=== PATIENT | female | born 2000 | race African-American/Black ===

== ENCOUNTER 2019-02-26 15:20 | Emergency (ER) | payer MEDICAID, OTHER ==
[~2019-02-26] VITALS: Ht 177.8 cm; Wt 59.0 kg
--- NOTE | 2019-02-26 15:40 | NUR ---
patient came to the ER c/o abd pain and +n/v, on room air, breathing evenly and unlabored. Connected to the monitor and pulse ox. kept comfortable, will continue to monitor accordingly.
--- NOTE | 2019-02-26 16:28 | NUR ---
urine collected and sent to lab.
[2019-02-26] MEDS ORDERED: MAG HYDROX/AL HYDROX/SIMETH 30 ML UDC PO ONE (16:30)
[2019-02-26] MEDS ORDERED: ONDANSETRON HCL/PF 4 MG/2 ML VIAL IVP ONE (16:30)
[2019-02-26] MEDS ORDERED: FAMOTIDINE/PF INJ 20 MG/2 ML VIAL IV ONE ×2 (16:30→16:36)
[2019-02-26] MEDS ORDERED: IV NS 0.9% 1,000 ML BAG IV ONE (16:30)
[2019-02-26] MEDS ORDERED: ONDANSETRON HCL/PF 4 MG/2 ML VIAL ONE (16:36)
[2019-02-26] MEDS ORDERED: MAG HYDROX/AL HYDROX/SIMETH 30 ML UDC ONE (16:36)
[2019-02-26 16:39] LABS: APPEARANCE,URINE Clear (CLEAR); BASOPHILS % (AUTO) 0.2 % (0.0-2.0); BILIRUBIN,URINE Negative (NEGATIVE); BLOOD, URINE Trace-intact Ery/uL (NEGATIVE); COLOR,URINE Dark (YELLOW); EOSINOPHILS % (AUTO) 2.1 % (0.0-6.0); HEMATOCRIT 41 % (33-45); HEMOGLOBIN 13.5 g/dL (11.5-14.8); KETONES,URINE Trace (NEGATIVE); LEUKOCYTE ESTERASE ,URINE Negative (NEGATIVE); LYMPHOCYTES # (AUTO) 1.5 /CMM (0.8-4.8); LYMPHOCYTES % (AUTO) 27.3 % (20.0-44.0); MEAN CORPUSCULAR HGB CONC 33 g/dl (31.0-36.0); MEAN CORPUSCULAR VOLUME 83 fL (82-100); MONOCYTES # (AUTO) 0.4 /CMM (0.1-1.30); MONOCYTES % (AUTO) 8.2 % (2.0-12.0); NEUTROPHILS # (AUTO) 3.4 /CMM (1.8-8.9); NEUTROPHILS % (AUTO) 62.2 % (43.0-81.0); NITRITE, URINE Negative (NEGATIVE); PLATELET COUNT (AUTO) 203 /CMM (150-450); PROTEIN,URINE 30 mg/dl (NEGATIVE); RED BLOOD CELL COUNT(AUTO) 4.94 MIL/uL (4.0-5.2); UGLUCOSE Negative (NEGATIVE); UROBILINOGEN,URINE 0.2 EU/dL (0.2); WHITE BLOOD COUNT (AUTO) 5.4 K/uL (4.3-11.0)
[2019-02-26 16:45] LABS: CALCIUM, SERUM 9.7 mg/dL (8.5-10.1); CREATININE 0.6 mg/dL (0.6-1.3); POTASSIUM 3.7 mmol/L (3.5-5.1)
[2019-02-26 16:50] LABS: ALBUMIN 4.3 g/dL (3.4-5.0); BILIRUBIN,DIRECT 0.1 mg/dL (0.0-0.2); BILIRUBIN,TOTAL 0.4 mg/dL (0.2-1.0); TOTAL PROTEIN, SERUM 7.6 g/dL (6.4-8.2)
[2019-02-26 16:57] LABS: BACTERIA,URINE Rare /HPF (None Seen); SQUAMOUS EPITHELIAL CELL,UR Few /HPF (None Seen); WBC,URINE NONE SEEN /HPF (0-3)
--- NOTE | 2019-02-26 18:24 | NUR ---
IV removed. Catheter intact and site benign. Pressure and 4x4 applied to site. No bleeding noted.
--- NOTE | 2019-02-26 18:24 | NUR ---
DCPatient discharged to home in stable condition. Written and verbal after care instructions given. Patient verbalizes understanding of instruction.
[2019-02-26 18:27] VITALS: BP 122/78
== END 2019-02-26 18:28 | disposition home or self-care (01) ==
LOC: ER 15:24
DX: R11.2 Nausea with vomiting, unspecified (principal); R19.7 Diarrhea, unspecified; R00.0 Tachycardia, unspecified
CPT/HCPCS: 36415; 80048; 80076; 81001; 83690; 84703; 85025; 87210; 96361; 96374; 96375; 99283; A6402; J2405; J3490; J7030; 81000-TC

== ENCOUNTER 2021-03-01 20:23 | Emergency (ER) | payer MEDICAID ==
[~2021-03-01] VITALS: Ht 177.8 cm; Wt 59.0 kg
[2021-03-01 20:29] VITALS: BP 136/76
[2021-03-01] MEDS ORDERED: CEPH500C2 PO (20:46)
[2021-03-01] MEDS ORDERED: MUPI22OI2 TP (20:46)
[2021-03-01] MEDS ORDERED: SULF1TAB48 PO (20:46)
[2021-03-01] MEDS ORDERED: CEPHALEXIN MONOHYDRATE 500 MG CAPSULE PO ONE ×2 (21:00→21:40)
[2021-03-01] MEDS ORDERED: SULFAMETH/TRIMETH 800/160 MG 1 UDTAB TABLET PO ONE (21:00)
[2021-03-01] MEDS ORDERED: SULFAMETH/TRIMETH 800/160 MG 1 UDTAB TABLET ONE (21:40)
--- NOTE | 2021-03-01 21:46 | NUR ---
Patient discharged to home in stable condition. Written and verbal after care instructions given. Patient verbalizes understanding of instruction. Pt ambulatory with a steady gait
== END 2021-03-01 22:04 | disposition home or self-care (01) ==
LOC: ER 20:27
DX: S90.821A Blister (nonthermal), right foot, initial encounter (principal); Z59.0 Homelessness; W57.XXXA Bitten or stung by nonvenomous insect and other nonvenomous arthropods, initial encounter; Y93.89 Activity, other specified; Y92.89 Other specified places as the place of occurrence of the external cause; Y99.8 Other external cause status

== ENCOUNTER 2021-03-07 23:38 | Emergency (ER) | payer MEDICAID ==
[~2021-03-07] VITALS: Ht 167.6 cm; Wt 65.8 kg
[2021-03-07 23:38] VITALS: BP 126/94
[~2021-03-07 23:38] MED LIST: CEPH500C2 PO; MUPI22OI2 TP; SULF1TAB48 PO
[2021-03-08] MEDS ORDERED: CEPH500C2 PO (00:47)
[2021-03-08] MEDS ORDERED: MUPI22OI2 TP (00:47)
== END 2021-03-08 00:50 | disposition home or self-care (01) ==
LOC: ER 23:38
DX: S90.821A Blister (nonthermal), right foot, initial encounter (principal); W57.XXXA Bitten or stung by nonvenomous insect and other nonvenomous arthropods, initial encounter; Y93.89 Activity, other specified; Y92.89 Other specified places as the place of occurrence of the external cause; Y99.8 Other external cause status

== ENCOUNTER 2021-03-10 00:08 | Emergency (ER) | payer MEDICAID ==
[~2021-03-10] VITALS: Ht 177.8 cm; Wt 63.5 kg
[2021-03-10 00:38] VITALS: BP 116/77
[2021-03-10] MEDS ORDERED: MUPI22OI2 TP (01:04)
== END 2021-03-10 02:41 | disposition home or self-care (01) ==
LOC: ER 00:10
DX: T63.391A Toxic effect of venom of other spider, accidental (unintentional), initial encounter (principal); Z79.899 Other long term (current) drug therapy; Y92.89 Other specified places as the place of occurrence of the external cause

== ENCOUNTER 2021-07-30 13:21 | Emergency (ER) | payer MEDICAID ==
[~2021-07-30] VITALS: Ht 177.8 cm; Wt 63.5 kg
--- NOTE | 2021-07-30 13:40 | NUR ---
[employer] BY PT'S BEDSIDE
--- NOTE | 2021-07-30 14:04 | NUR ---
5 BAGS AND 1 LUGGAGED LABELED AND BROUGHT TO STORAGE PT BELONGINGS ROOM. PURSE BY PT'S BEDSIDE.
--- NOTE | 2021-07-30 15:32 | NUR ---
MELY called [facility] [[address] [place] [address]; Unit TEL: [phone] (1054 intake) ] for Psych placement as this pt. is on a 5150 hold for DTS/GD. Per Lester from Intake, they have a bed available. They need a negative PCR test. However, they will accept pt. with negative rapid test and pending PCR. MELY notified Tech. Salgado for PCR. Clinicals to be faxed to [place] ATTN: Intake fax:[phone] when labs and MD note are completed.
[2021-07-30 16:04] LABS: BASOPHILS % (AUTO) 0.5 % (0.0-2.0); EOSINOPHILS % (AUTO) 1.6 % (0.0-6.0); HEMATOCRIT 31 % (33-45); LYMPHOCYTES # (AUTO) 1.5 K/uL (0.8-4.8); LYMPHOCYTES % (AUTO) 25.5 % (20.0-44.0); MEAN CORPUSCULAR HGB CONC 32 g/dl (31.0-36.0); MEAN CORPUSCULAR VOLUME 81 fL (82-100); MONOCYTES # (AUTO) 0.6 K/uL (0.1-1.30); MONOCYTES % (AUTO) 9.7 % (2.0-12.0); NEUTROPHILS # (AUTO) 3.6 K/uL (1.8-8.9); NEUTROPHILS % (AUTO) 62.7 % (43.0-81.0); PLATELET COUNT (AUTO) 282 K/uL (150-450); RED BLOOD CELL COUNT(AUTO) 3.81 MIL/uL (4.0-5.2); WHITE BLOOD COUNT (AUTO) 5.7 K/uL (4.3-11.0)
[2021-07-30 16:15] LABS: CALCIUM, SERUM 8.4 mg/dL (8.5-10.1); CARBON DIOXIDE 25 mmol/L (21-32); CHLORIDE 104 mmol/L (98-107); CREATININE 0.6 mg/dL (0.6-1.3); GLUCOSE 72 mg/dL (74-106); POTASSIUM 3.2 mmol/L (3.5-5.1); SODIUM SERUM 139 mmol/L (136-145); UREA NITROGEN, BLOOD 10 mg/dL (7-18)
[2021-07-30 16:20] LABS: ACETAMINOPHEN 2 ug/ml (10-30); ALANINE AMINOTRANSFERASE 21 U/L (12-78); ALBUMIN 2.8 g/dL (3.4-5.0); ALCOHOL, BLOOD < 3 mg/dL (0-0); ALKALINE PHOSPHATASE 56 U/L (46-116); ASPARTATE AMINOTRANSFERASE 14 U/L (15-37); BILIRUBIN,DIRECT 0.1 mg/dL (0.0-0.2); BILIRUBIN,TOTAL 0.2 mg/dL (0.2-1.0); TOTAL PROTEIN, SERUM 5.6 g/dL (6.4-8.2)
--- NOTE | 2021-07-30 16:29 | NUR ---
urine collected and sent to the lab
[2021-07-30 16:48] LABS: BILIRUBIN,URINE NEGATIVE (NEGATIVE); COLOR,URINE YELLOW (YELLOW); LEUKOCYTE ESTERASE ,URINE NEGATIVE (NEGATIVE); NITRITE, URINE NEGATIVE (NEGATIVE); PROTEIN,URINE TRACE mg/dl (NEGATIVE); UGLUCOSE NEGATIVE (NEGATIVE); UROBILINOGEN,URINE 0.2 EU/dL (0.2)
[2021-07-30 16:59] LABS: BACTERIA,URINE 1+ /HPF (None Seen)
--- NOTE | 2021-07-30 17:56 | NUR ---
covid swab done and sent to lab
--- NOTE | 2021-07-30 18:20 | NUR ---
FAXED CLINICALS TO [facility] [phone] TEL [phone] COVID STATUS NEG.
--- NOTE | 2021-07-30 19:58 | NUR ---
CALLED [facility] AND SPOKE TO ANSLEY, THEY'RE REVIWING THE CASE. WILL GIVE US A CALL BACK W/ UPDATE
--- NOTE | 2021-07-30 20:21 | NUR ---
PATIENT ALERT AND ON A TELE MONITOR AND POX.
--- NOTE | 2021-07-30 20:26 | NUR ---
GAVE REPORT TO UTE FROM [facility] FOR PT EMIR. K 3.2 WITH NO ORDERS FOR MEDS FROM DR CHAVEZ.
[2021-07-30] MEDS ORDERED: SULF1TAB48 PO (21:26)
[2021-07-30] MEDS ORDERED: IBUPROFEN 400 MG TABLET ONE (21:26)
[2021-07-30] MEDS ORDERED: IBUPROFEN 400 MG TABLET PO ONE (21:30)
[2021-07-30] MEDS ORDERED: POTASSIUM CHLORIDE 20 MEQ TAB.PRT.SR PO ONE ×2 (21:59→22:00)
[2021-07-30] MEDS ORDERED: SULFAMETH/TRIMETH 800/160 MG 1 UDTAB TABLET ONE (22:22)
[2021-07-30] MEDS ORDERED: SULFAMETH/TRIMETH 800/160 MG 1 UDTAB TABLET PO ONE (22:30)
--- NOTE | 2021-07-30 22:56 | NUR ---
multiple phone calls to monserrat yancey @ [phone] w/ no answer
--- NOTE | 2021-07-30 23:08 | NUR ---
spoke to sandra at [facility] and updatd her re medications given . will fax the records
--- NOTE | 2021-07-30 23:19 | NUR ---
FAXED FACE SHEET, CLINICALS, AND HOLD TO DAR HARDY AT [phone]
--- NOTE | 2021-07-30 23:50 | NUR ---
PATIENT ALERT AND ORIENTED, RESTING COMFORTABLY NO COMPLAINTS
--- NOTE | 2021-07-31 00:52 | NUR ---
PT GOT ACCEPTED AT [facility] BY DR JACKSON 144A # FOR REPORT: [phone]
--- NOTE | 2021-07-31 00:56 | NUR ---
[facility] ETA : 30-45 MIN
--- NOTE | 2021-07-31 01:22 | NUR ---
CALLED TO GIVE REPORT. WILL CALL BACK AGAIN TO GIVE REPORT.
[2021-07-31] MEDS ORDERED: IBUPROFEN 400 MG TABLET PO ONE (02:00)
[2021-07-31] MEDS ORDERED: IBUPROFEN 400 MG TABLET ONE (02:03)
--- NOTE | 2021-07-31 02:06 | NUR ---
ALL OF PT'S BELONGINGS LOADED INTO AMBULANCE
--- NOTE | 2021-07-31 02:06 | NUR ---
[facility] AT BED SIDE TO ORCHID HAND THE PT, REPORT GIVEN
--- NOTE | 2021-07-31 03:04 | NUR ---
REC'D A CALL FROM UTE AT [facility] STATED HE'S UNABLE TO ACCEPT THE PT DUE TO HER HANDS CONDITION. INFORMED UTE HE CAN GO AHEAD AND SENT THE PT BACK TO THE ER, HOWEVER DR'S NOTE EXPLAINS THE PT'S CONDITION W/ STUCK RINGS ON THE FINGERS. DR BOSWELL MADE AWARE.
--- NOTE | 2021-07-31 03:49 | NUR ---
[facility] UNIT 285 CAME BACK AND RETURNED PT.
--- NOTE | 2021-07-31 05:47 | NUR ---
patient resting comfortably no complaints at this time
--- NOTE | 2021-07-31 08:49 | NUR ---
MELY faxed clinicals to: [facility] FAX: [phone] TEL: [phone] Hussain Nguyen ATTN:Monty tel:[phone] Mady Sethi fax:[phone] tel:[phone] ATTN: Ralf
--- NOTE | 2021-07-31 08:56 | NUR ---
[facility] denied pt. no beds.
[2021-07-31] MEDS ORDERED: OLANZAPINE 5 MG TABLET PO ONE (09:30)
[2021-07-31] MEDS ORDERED: IBUPROFEN 600 MG TABLET PO ONE (09:30)
[2021-07-31] MEDS ORDERED: OLANZAPINE 5 MG TABLET ONE (10:14)
[2021-07-31] MEDS ORDERED: IBUPROFEN 600 MG TABLET ONE (10:14)
--- NOTE | 2021-07-31 10:19 | NUR ---
C/O BOTH HAND PAIN 10.
[2021-07-31] MEDS ORDERED: LORAZEPAM INJ 2 MG/ML VIAL IM/IV ONE (10:30)
[2021-07-31] MEDS ORDERED: LORAZEPAM INJ 2 MG/ML VIAL ONE (10:43)
[2021-07-31] MEDS ORDERED: LIDOCAINE /MPF 1% VIAL 5 ML VIAL ONE (11:03)
[2021-07-31] MEDS ORDERED: VANCOMYCIN 1 GM in IV D5W 250 ML IV ONE (11:30)
[2021-07-31] MEDS ORDERED: PIPERACILLIN /TAZOBACTAM 3.375 G in IV D5W 50 ML IV ONE (11:30)
--- NOTE | 2021-07-31 11:37 | NUR ---
CALLED [facility] AND WAS NOTIFIED OF PT STATUS. ALSO, FAXED OVER FACE SHEET OF PT TO [phone]
--- NOTE | 2021-07-31 11:53 | NUR ---
CALL FROM [facility], UNABLE TO TAKE PATIENT, NO STAFF TO ACCEPT THE PATIENT
--- NOTE | 2021-07-31 12:53 | NUR ---
CALLED [facility] FOR POSSIBLE ADMISSION OF PT BUT WAS NOTIFIED THAT THEY ARE AT MAX CAPACITY.
--- NOTE | 2021-07-31 13:23 | NUR ---
"SS Consult: SS consult for homelessness. Pt. Is a 21-year-old Black female. Pt. demonstrates adequate insight to the reason for hospitalization. Per pt., she was brought to hospital by ambulance due to swollen hands. Pt. was oriented x3, alert, and cooperative. During interview, pt. was capable of following directions, made appropriate eye-contact, but appeared tired. SW explored pt.s Hx of mental health and substance abuse. Pt. reported no Hx of mental health, SI/HI, denied AH/VH, paranoia or delusions. SW explored pt.s living situation. Per pt., she been homeless for three years. Pt. mentioned that she has been living on the streets and shelters [section 8]. Per pt., she reports having no adequate support. SW explored pt.s financial status. Per pt., she is currently unemployed and does not receive any benefits. SW provided pt. with homeless resources and pt. accepted. Pt. requested a tap card, and SW provided her with one. Plan: MELY provided available resources and pt. accepted. Once discharge, per pt., she will use the resources that are provided to explore her living options. Resources Provided: Year-round shelters: [facility] [address] [place] [address] ; [facility] [facility] [address] [place] [address]; [facility] [facility] [id number] [facility] [address] Winter Shelters: [facility] Provider: [facility] Address: [address] [facility], [address] # of Beds: 47 Population Served: [facility] 6 | [facility] Rachna Keane [place] Provider: [facility] at Last Address: [address], [address] # of Beds: 66 Population Served: [facility] [employer] [place] Provider: First to Serve Address: [address] [facility], [address] # of Beds: 56 Population Served: [facility] [place] Provider: / [facility] Address: [address] [facility], [address] # of Beds: 49 Population Served: [facility] 8 | [place] Provider: First to Serve Address: [facility]5 [facility] # of Beds: 37 Population Served: [place] Hygiene: [facility]: [address] [place] ; [facility] [address] [facility] ; [facility] [address] [facility] . Food Resources: [place] [facility] at [facility]- [address] [facility]. Boss; Meet Each Need with Dignity ([facility]) [address] [facility]; [facility] [address] [facility]; [facility] 8[address] [facility]. Mental Health resources provided: [facility] [address] [place], [place] [id number] ; [facility] Mental Health [place] [address], [place], [place] [id number] ; [facility] [address] [place], [place] [phone] ; [facility] [address] [place], [place] [id number] Healthcare Clinics: [facility] [address] [facility], [address] [place]. [place] ; [facility] [address] [facility] [address] [place] [address]; [facility] [address] [facility]. [place] [id number] [phone]"
[2021-07-31] MEDS: OLANZAPINE 5 MG TABLET PO SCH (17:00)
--- NOTE | 2021-07-31 17:29 | NUR ---
Note shahla in ED - 07/31/21 at 1731 by ANITA ZYPREXA 10 MG DUE AT 1700 HELD DUE TO PATIENT SLEEPING. RONALD HAYNES MADE AWARE.
--- NOTE | 2021-07-31 17:31 | NUR ---
ZYPREXA 10 MG DUE AT 1700 HELD DUE TO PATIENT SLEEPING. DR DIAS MADE AWARE.
--- NOTE | 2021-07-31 19:05 | NUR ---
Patient is resting comfortably in bed with eyes closed. Easily aroused. VSS
--- NOTE | 2021-07-31 21:05 | NUR ---
PT SITTING WATCHING TV, ATTACHED TO MONITOR AND POX. VSS
--- NOTE | 2021-07-31 22:22 | NUR ---
PT WALKED TO BATHROOM, NEEDS MET
--- NOTE | 2021-07-31 23:26 | NUR ---
[facility] WAS CALLED REQUESTING FOR HIGHER LEVEL OF CARE TRANSFER OF CELLULITIS OF MULTIPLE FINGERS 2ND TO IMBEDED METAL RINGS
--- NOTE | 2021-07-31 23:27 | NUR ---
CALLED [facility] SPOKE TO BONG WARE, FAXED FACESHEET AND CLINICALS TO [facility], AWAITING CALL BACK, WAS NOTIFIED OF LIMITED BED AVAILABILITY.
--- NOTE | 2021-08-01 00:44 | NUR ---
Kal gale in EDM - 08/01/21 at 0045 by WESTON EL FROM [facility] CALLED BACK TO GET FURTHER CLINICAL INFORMATION. STILL AWAITING FOR ACCEPTANCE.
--- NOTE | 2021-08-01 00:45 | NUR ---
EL FROM [facility] TRAN[facility] CLAUDE CALLED BACK TO GET FURTHER CLINICAL INFORMATION. STILL AWAITING FOR ACCEPTANCE.
--- NOTE | 2021-08-01 01:20 | NUR ---
SPOKE WITH EL FROM [facility]. CASE IS DECLINED D/T SERVICE AND HOSPITAL IS AT CAPACITY.
--- NOTE | 2021-08-01 01:31 | NUR ---
[facility]ED [facility] FOR [facility]HER [facility]EVEL OF CARE. HOSPITAL IS AT CAPACITY AND CAN BE PLCAED ON A WAITING LIST. CLINICAL TO BE FAXED TO [phone] AND IMAGES OF THE HAND TO [phone]
--- NOTE | 2021-08-01 01:53 | NUR ---
CLINICALS AND PHOTOS OF HANDS SENT TO [facility]. WILL BE PLACED ON A WAITING LIST.
[2021-08-01] MEDS: OLANZAPINE 5 MG TABLET PO SCH ×2 (09:00→17:25)
--- NOTE | 2021-08-01 13:02 | NUR ---
THE PATIENT IS HAVING LUNCH. TOLERAES PROVIDED MEAL WELL.
--- NOTE | 2021-08-01 17:06 | NUR ---
PER [facility], UNABLE TO ACCEPT PATIENT DUE TO NO HAND SURGEON AVAILABLE, AND DECLINED TO NOT MEETING REQUIREMENT FOR TRANSFER DUE TO PT 5150 STATUS, RECOMMENDS GIVE ANTIOBIOTICS AND REMOVE RINGS
[2021-08-01] MEDS ORDERED: OLANZAPINE 5 MG TABLET ONE (17:10)
[2021-08-01] MEDS ORDERED: IBUPROFEN 600 MG TABLET PO ONE (19:30)
[2021-08-01] MEDS ORDERED: IBUPROFEN 600 MG TABLET ONE ×2 (20:29→21:08)
--- NOTE | 2021-08-01 20:35 | NUR ---
PT REFUSED MOTRIN AT THIS TIME; PT SLEEPING AND WANTS TO TAKE IT LATER. C/O 3/10 PAIN AT THIS TIME. ALL NEEDS MET.
--- NOTE | 2021-08-02 01:51 | NUR ---
CALLED [facility], SPOKE WITH ROSALIE FROM [facility], HOSPITAL IS AT CAPACITY.
[2021-08-02] MEDS ORDERED: PIPERACILLIN /TAZOBACTAM 3.375 G in IV D5W 50 ML IV ONE (02:00)
[2021-08-02] MEDS ORDERED: VANCOMYCIN 1 GM in IV D5W 250 ML IV ONE (02:00)
--- NOTE | 2021-08-02 02:09 | NUR ---
CALLED [facility] TO FOR [facility] LEVEL OF CARE. SPOKE WITH IVAN, SHE WILL CALL BE TO HAVE CASE RE-REVIEWED.
[2021-08-02] MEDS ORDERED: VANCOMYCIN 1 GM VIAL ONE (02:12)
[2021-08-02] MEDS ORDERED: PIPERACILLIN /TAZOBACTAM 3.375 G VIAL IV ONE (02:12)
--- NOTE | 2021-08-02 03:47 | NUR ---
CALLED BACK [facility] TO FOLLOW UP ON TRANSFER REQUEST. STILL UNABLE TO TAKE D/T SERVICES AND HOSPITAL AT CAPACITY
--- NOTE | 2021-08-02 03:50 | NUR ---
CALLED [facility] TRANSFER TO REQUEST HIGHER LEVEL OF CARE. HOSPITAL CAN NOT ACCOMODATE CASE D/T HOSPITAL IS AT CAPACITY
--- NOTE | 2021-08-02 08:30 | NUR ---
THE PATIENT IS HAVING BREAKFAST. TOLERATES PROVIDED FOOD WELL.
[2021-08-02] MEDS ORDERED: OLANZAPINE 5 MG TABLET ONE (09:31)
[2021-08-02] MEDS: OLANZAPINE 5 MG TABLET PO SCH (09:36)
[2021-08-02] MEDS ORDERED: IBUPROFEN 600 MG TABLET ONE (12:14)
--- NOTE | 2021-08-02 12:18 | NUR ---
SPOKED TO THE PATIENT REGARDING HER SITUATION THAT THE RING SHOULD BE REMOVE. PT REFUSED AND WANTS TO SIGN AMA. AWARE.
--- NOTE | 2021-08-02 12:21 | NUR ---
KERI WOODY ETA 1HR.
[2021-08-02] MEDS ORDERED: IBUPROFEN 600 MG TABLET PO ONE (12:30)
--- NOTE | 2021-08-02 14:06 | NUR ---
KERI (PSYCH CLINICIAN) AT THE BEDSIDE
--- NOTE | 2021-08-02 14:23 | NUR ---
IV removed. Catheter intact and site benign. Pressure and 4x4 applied to site. No bleeding noted.
--- NOTE | 2021-08-02 14:24 | NUR ---
Patient does not wish to proceed with medical care recommended by Dr. Ferraro. Patient given information related to possible complications, up to and including , which could occur as a result of leaving the hospital at this time. Patient verbalizes understanding of risks involved due to leaving against medical advice. Patient has signed AMA form.
[2021-08-02 14:28] VITALS: BP 125/68
== END 2021-08-02 14:28 | disposition left against medical advice (07) ==
LOC: ER 13:24
DX: F29 Unspecified psychosis not due to a substance or known physiological condition (principal); L03.114 Cellulitis of left upper limb; L03.113 Cellulitis of right upper limb; Z59.02 Unsheltered homelessness; Z82.49 Family history of ischemic heart disease and other diseases of the circulatory system; W49.04XA Ring or other jewelry causing external constriction, initial encounter; Y92.410 Unspecified street and highway as the place of occurrence of the external cause; F31.9 Bipolar disorder, unspecified; R45.851 Suicidal ideations; M79.646 Pain in unspecified finger(s); M79.2 Neuralgia and neuritis, unspecified; Z20.822 Contact with and (suspected) exposure to COVID-19
CPT/HCPCS: 36415 ×2; 64450; 73130 ×2; 80048; 80076; 80143; 80307; 80320; 81001; 83605; 84145; 84702; 84703; 85025; 87040 ×2; 87426; 96365; 96366; 96367; 96372; 96376; 99285; C9803 ×2; J2060; J2543; J3370; J3490; J7060; U0003; G0480

== ENCOUNTER 2022-07-14 21:18 | Inpatient (IN) | payer MEDICAID ==
[~2022-07-14] VITALS: Ht 180.3 cm; Wt 69.9 kg
--- NOTE | 2022-07-14 21:52 | NUR ---
BIBR 860 FOR SI, PLANNING TO RUN IN TO TRAFFIC. PT A/OX4. TOLERATING R/A WELL; RESP EVEN AND NONLABORED. CHANGED IN GOWN, BELONGINGS PLACED IN LOCKER, WANDED BY SECURITY. SITTER AT PT'S BEDSIDE. SAFETY MEASURES IN PLACE.
--- NOTE | 2022-07-14 21:54 | NUR ---
[employer] AT BED SIDE
[2022-07-14 22:06] LABS: BASOPHILS % (AUTO) 0.2 % (0.0-2.0); EOSINOPHILS % (AUTO) 1.7 % (0.0-6.0); HEMATOCRIT 40 % (33-45); HEMOGLOBIN 12.7 g/dL (11.5-14.8); LYMPHOCYTES # (AUTO) 0.9 K/uL (0.8-4.8); LYMPHOCYTES % (AUTO) 12.5 % (20.0-44.0); MEAN CORPUSCULAR HGB CONC 32 g/dl (31.0-36.0); MEAN CORPUSCULAR VOLUME 81 fL (82-100); MONOCYTES # (AUTO) 0.3 K/uL (0.1-1.30); MONOCYTES % (AUTO) 4.8 % (2.0-12.0); NEUTROPHILS # (AUTO) 5.8 K/uL (1.8-8.9); NEUTROPHILS % (AUTO) 80.8 % (43.0-81.0); PLATELET COUNT (AUTO) 178 K/uL (150-450); RED BLOOD CELL COUNT(AUTO) 4.96 MIL/uL (4.0-5.2); WHITE BLOOD COUNT (AUTO) 7.2 K/uL (4.3-11.0)
[2022-07-14 22:37] LABS: CARBON DIOXIDE 28 mmol/L (21-32); CHLORIDE 103 mmol/L (98-107); CREATININE 0.8 mg/dL (0.6-1.3); GLUCOSE 142 mg/dL (74-106); SODIUM SERUM 139 mmol/L (136-145); UREA NITROGEN, BLOOD 5 mg/dL (7-18)
[2022-07-14 22:56] LABS: ALBUMIN 3.8 g/dL (3.4-5.0); ALCOHOL, BLOOD < 3 mg/dL (0-0); ALKALINE PHOSPHATASE 102 U/L (46-116); BILIRUBIN,DIRECT 0.5 mg/dL (0.0-0.2); TOTAL PROTEIN, SERUM 6.8 g/dL (6.4-8.2)
--- NOTE | 2022-07-14 22:59 | NUR ---
COVID ANTIGEN SWAB COLLECTED AND SENT TO LAB
[2022-07-14 23:01] LABS: ACETAMINOPHEN 0 ug/ml (10-30); ALANINE AMINOTRANSFERASE > 1000 U/L (12-78); ASPARTATE AMINOTRANSFERASE > 1000 U/L (15-37)
--- NOTE | 2022-07-14 23:29 | NUR ---
URINE COLLECTED AND SENT TO LAB
[2022-07-14] MEDS ORDERED: ACETYLCYSTEINE IV 6,000 MG/30 ML VIAL IV ONE (23:57)
[2022-07-14 23:58] LABS: BILIRUBIN,URINE SMALL (NEGATIVE); COLOR,URINE YELLOW (YELLOW); LEUKOCYTE ESTERASE ,URINE NEGATIVE (NEGATIVE); NITRITE, URINE NEGATIVE (NEGATIVE); PH,URINE 6.5 (5.0-8.0); PROTEIN,URINE 30 mg/dl (NEGATIVE); UGLUCOSE 100 MG/DL mg/dL (NEGATIVE); UROBILINOGEN,URINE >=8.0 EU/dL (0.2)
[2022-07-14] MEDS ORDERED: POTASSIUM CHLORIDE 20 MEQ TAB.PRT.SR PO ONE (23:58)
[2022-07-15] VITALS (11 sets, daily range): BP systolic 98–121; BP diastolic 51–76
[2022-07-15] MEDS ORDERED: IV NS 0.9% 1,000 ML BAG IV ONE
[2022-07-15] MEDS ORDERED: ACETYLCYSTEINE IV ONE ×6
[2022-07-15] MEDS ORDERED: D5W IV ONE ×6
--- NOTE | 2022-07-15 00:30 | NUR ---
PROVIDED PT WITH FOOD AND DRINKS; TOLERATING WELL.
--- NOTE | 2022-07-15 01:06 | NUR ---
US TECH AT PT'S BEDSIDE; ONLY PORTION OF US COMPLETED. PT REFUSED TO TURN TO THE SIDE
--- NOTE | 2022-07-15 01:10 | NUR ---
[facility] C/O SUSY AT [facility] [phone]
[2022-07-15] MEDS ORDERED: ACETYLCYSTEINE IV 6,000 MG/30 ML VIAL IV ONE ×2 (01:54→04:10)
--- NOTE | 2022-07-15 02:06 | NUR ---
SPOKE TO AMY AT [facility] AND FAXED FACE SHEET AND CLINICALS TO [phone] Addendum: 07/15/22 at 0359 by ARIADNA CORRECTION: SPOKE TO RENETTA
[2022-07-15] MEDS ORDERED: ONDANSETRON HCL/PF 4 MG/2 ML VIAL ONE (02:18)
--- NOTE | 2022-07-15 02:20 | NUR ---
EMESIS X1. ADMINISERED ZOFRAN 4MG IVP. WILL REASSESS FOR N/V
[2022-07-15] MEDS ORDERED: ONDANSETRON HCL/PF - ER 4 MG/2 ML VIAL IV ONE (02:30)
--- NOTE | 2022-07-15 03:59 | NUR ---
PER JORGE AT [facility], PRECIOUS [facility] HAS NO LIVER TRANSPLANT CNETER.
--- NOTE | 2022-07-15 04:17 | NUR ---
SPOKE TO DALJIT, THE LIVER TRANSPLANT NAVIGATOR AT [facility] AND FAXED THE FACESHEET AND CLINICALS TO [phone]
--- NOTE | 2022-07-15 05:18 | NUR ---
SPOKE TO CHER GARCIA , STORE CLERK CHECKER/ONCOLOGIST AT [facility] RECOMMENDING TO REPEAT THE CBC, CMP AND COAGS. WILL MAKE DR BERMEO AWARE.
--- NOTE | 2022-07-15 06:21 | NUR ---
DEPARTMENTAL BUYER AT PT'S BEDSIDE
[2022-07-15 06:23] LABS: BASOPHILS % (AUTO) 0.3 % (0.0-2.0); EOSINOPHILS % (AUTO) 2.1 % (0.0-6.0); HEMATOCRIT 34 % (33-45); HEMOGLOBIN 11.2 g/dL (11.5-14.8); LYMPHOCYTES % (AUTO) 14.9 % (20.0-44.0); MEAN CORPUSCULAR HGB CONC 33 g/dl (31.0-36.0); MEAN CORPUSCULAR VOLUME 79 fL (82-100); MONOCYTES # (AUTO) 0.5 K/uL (0.1-1.30); NEUTROPHILS # (AUTO) 4.8 K/uL (1.8-8.9); NEUTROPHILS % (AUTO) 74.7 % (43.0-81.0); PLATELET COUNT (AUTO) 170 K/uL (150-450); RED BLOOD CELL COUNT(AUTO) 4.35 MIL/uL (4.0-5.2); WHITE BLOOD COUNT (AUTO) 6.5 K/uL (4.3-11.0)
[2022-07-15 06:37] LABS: ALBUMIN 2.6 g/dL (3.4-5.0); BILIRUBIN,TOTAL 0.7 mg/dL (0.2-1.0); CREATININE 0.5 mg/dL (0.6-1.3); TOTAL PROTEIN, SERUM 5.3 g/dL (6.4-8.2)
--- NOTE | 2022-07-15 07:10 | NUR ---
RECIVED PT from Dereck rubio pt asleepy arusble when called name respiration spont and easy on distress on Mucomist drip at 62.5ml/hr infused and patent
--- NOTE | 2022-07-15 07:22 | NUR ---
FAXED RECENT LABS TO THE LIVER TRANSPLANT NAVIGATOR AT [facility] AT [phone]
[2022-07-15 07:46] LABS: RBC,URINE NONE SEEN /HPF (0-2)
[2022-07-15 07:47] LABS: BACTERIA,URINE Few /HPF (None Seen); MUCUS,URINE Moderate /LPF (None Seen); SQUAMOUS EPITHELIAL CELL,UR Moderate /HPF (None Seen)
[2022-07-15 07:48] LABS: URINE AMORPHOUS URATE Moderate /HPF (None Seen)
--- NOTE | 2022-07-15 07:59 | NUR ---
Received called from francisco burns with ( samuel Briceno
[2022-07-15] MEDS ORDERED: POTASSIUM CHLORIDE 20 MEQ TAB.PRT.SR PO ONE ×3 (08:00→08:11)
--- NOTE | 2022-07-15 08:04 | NUR ---
RECEIVE CALL FROM GIRISH JIMÉNEZ ) REQUSTED LFT AND INR EVERY 4 HR to moniter
--- NOTE | 2022-07-15 08:33 | NUR ---
RECIEVED CALL FROM [facility] DECLINING THE CASE D/T UNCONTROLLED PSYCHIATRIC DISORDER. DR KAY MADE AWARE.
--- NOTE | 2022-07-15 08:45 | NUR ---
pT pull out iv line Rinserted ango catheter g 20 on [address] hand
--- NOTE | 2022-07-15 10:00 | NUR ---
BLOOD DROW FOR 3RD LFT AND INR
[2022-07-15 10:26] LABS: ALBUMIN 2.6 g/dL (3.4-5.0); BILIRUBIN,TOTAL 0.8 mg/dL (0.2-1.0); CALCIUM, SERUM 7.9 mg/dL (8.5-10.1); CREATININE 0.6 mg/dL (0.6-1.3); TOTAL PROTEIN, SERUM 5.2 g/dL (6.4-8.2)
--- NOTE | 2022-07-15 10:30 | NUR ---
Reiceved called from ( POSING CONTROLR FALLOW UP (DON, U )
[2022-07-15 10:35] LABS: PHOSPHORUS 0.9 mg/dL (2.5-4.9); POTASSIUM 2.7 mmol/L (3.5-5.1)
[2022-07-15] MEDS ORDERED: Magnesium 1GM/D5W 100ML PREMIX 100 ML IV ONE (11:02)
[2022-07-15] MEDS: Magnesium 1GM/D5W 100ML PREMIX 100 ML IV SCH ×3 (11:04→11:40)
--- NOTE | 2022-07-15 11:15 | NUR ---
MOVE SHEET SUBMITTED
--- NOTE | 2022-07-15 11:20 | NUR ---
STRTED MUCAMEST DRIP AT 62.5ML/HR INFUSED AND PATENT ON RT HAND # 4 FLO
--- NOTE | 2022-07-15 11:21 | NUR ---
epic paged, awaiting hospitalist call back.
[2022-07-15] MEDS: POTASSIUM PHOSPHATE MM 7.5 MMOL in IV NS 0.9% 100 ML IV SCH ×2 (11:30→14:52)
--- NOTE | 2022-07-15 13:58 | NUR ---
PT ASLEEPY VS CHECKED stable
--- NOTE | 2022-07-15 14:30 | NUR ---
AMBLATE TO BR VODING no complan
--- NOTE | 2022-07-15 15:24 | NUR ---
Contenue MUCOMyst drip at 62.5ml/hr infused and patent
[2022-07-15] MEDS ORDERED: MAGNESIUM HYDROXIDE 30 ML UDC PO PRN (16:00)
[2022-07-15] MEDS ORDERED: ZOLPIDEM TARTRATE 5 MG TABLET PO PRN (16:00)
[2022-07-15] MEDS ORDERED: ACETAMINOPHEN 325 MG TABLET PO PRN (16:00)
[2022-07-15] MEDS ORDERED: ONDANSETRON HCL/PF 4 MG/2 ML VIAL IVP PRN (16:00)
[2022-07-15] MEDS ORDERED: Z GUARD REMEDY 4 OZ OINT TP PRN (16:00)
[2022-07-15] MEDS ORDERED: MAG HYDROX/AL HYDROX/SIMETH 30 ML UDC PO PRN (16:00)
--- NOTE | 2022-07-15 16:26 | NUR ---
wating for icu bed
--- NOTE | 2022-07-15 17:12 | NUR ---
HAND OFF DEQUAN RN TO ROOM 262 ICU
--- NOTE | 2022-07-15 17:25 | NUR ---
ADMITTED FROM E.R DEPT; REPORT FROM HORTENSIA; STABLE AT THIS TIME; NO ACUTE DISTRESS NOTED, DR. RIVERA AT THE UNIT AWARE OF ADMISSION; TEMP=97.9 ORAL, ROOM AIR 98%; NO BELONGINGS. CALL LIGHT IN REACH. CLOSE MONITORING STATUS.
--- NOTE | 2022-07-15 17:40 | NUR ---
DR. RIVERA AT THE UNIT AND VERIFIED WITH MD REGARDING MUCOMYST IV; PER MD "JUST FINISH THE CURRENT MUCOMYST IV BAG."
--- NOTE | 2022-07-15 18:10 | NUR ---
DR. RIVERA MADE AWARE OF PATIENT'S REFUSAL OF LAB DRAWN EVEN AFTER 3X ENCOURAGEMENT OF RN, DR. RIVERA TALKED TO PT AND PT STILL REFUSED.NOTIFIED ASSISTANT FINANCIAL ACCOUNTANT TO TRY AT 1999.
--- NOTE | 2022-07-15 19:00 | NUR ---
RN 1-1 MONITORING RENDERED FOR SAFETY; NO ACUTE DISTRESS; ENDORSED BEDSIDE REPORT TO BRUNO AND TO RETRY LAB DRAW AT 1999.
[2022-07-15 20:56] LABS: ALBUMIN 2.5 g/dL (3.4-5.0); BILIRUBIN,DIRECT 0.3 mg/dL (0.0-0.2); BILIRUBIN,TOTAL 0.8 mg/dL (0.2-1.0); TOTAL PROTEIN, SERUM 5.3 g/dL (6.4-8.2)
--- NOTE | 2022-07-15 22:20 | NUR ---
SAS DEVELOPER INITIAL ASSESSMENT. RECEIVED THE PT REST IN BED. AWAKE, ALERT, FOLLOW COMMANDS. CEO & BOARD DIRECTOR SHOWING NSR. IB RT AND LT HAND SALINE LOCK. PT IS ROOM AIR. SAT 98%, NO ACUJTE DISTRESS NOTED, PT IS ONE TO ONE. SITTER AT BED SIDE . PT HAS STILL SUCIDAL PLAN. PT STATED I WANT TO .PSYCHIATRIC EVAUATION PLACED.
--- NOTE | 2022-07-15 22:37 | NUR ---
DIRECTOR OF MATERIALS, LAB RESULT NOTIFIED POISON CONTROL. I SPOKE WITH TERRANCE. CASE SIGNED OFF
--- NOTE | 2022-07-15 22:40 | NUR ---
POISON CONTROL SAID NO NEED Q4H LFT, ONLY AM LABS.
[2022-07-16] VITALS (27 sets, daily range): BP systolic 90–126; BP diastolic 48–76
--- NOTE | 2022-07-16 03:40 | NUR ---
PRODUCT ANALYST. AM CARE GIVEN. PT STILL IN ROOM AIR. SAT 98%. NO ACUTE DISTRESS NOTED. CHILDCARE PROVIDER SHOWING NSR. VITALS STABLE. WILL CONTINUE TO MONITOR LIVER FUNCTION TEST
[2022-07-16 04:49] LABS: BASOPHILS % (AUTO) 0.3 % (0.0-2.0); EOSINOPHILS % (AUTO) 3.6 % (0.0-6.0); HEMATOCRIT 34 % (33-45); HEMOGLOBIN 10.8 g/dL (11.5-14.8); LYMPHOCYTES # (AUTO) 1.4 K/uL (0.8-4.8); LYMPHOCYTES % (AUTO) 28.8 % (20.0-44.0); MEAN CORPUSCULAR HGB CONC 32 g/dl (31.0-36.0); MEAN CORPUSCULAR VOLUME 80 fL (82-100); MONOCYTES # (AUTO) 0.6 K/uL (0.1-1.30); MONOCYTES % (AUTO) 11.4 % (2.0-12.0); NEUTROPHILS # (AUTO) 2.7 K/uL (1.8-8.9); NEUTROPHILS % (AUTO) 55.9 % (43.0-81.0); PLATELET COUNT (AUTO) 175 K/uL (150-450); RED BLOOD CELL COUNT(AUTO) 4.22 MIL/uL (4.0-5.2); WHITE BLOOD COUNT (AUTO) 4.9 K/uL (4.3-11.0)
[2022-07-16 05:00] LABS: CREATININE 0.6 mg/dL (0.6-1.3); MAGNESIUM 1.8 mg/dL (1.8-2.4); PHOSPHORUS 2.4 mg/dL (2.5-4.9)
[2022-07-16 05:50] LABS: POTASSIUM 2.7 mmol/L (3.5-5.1)
[2022-07-16] MEDS: POTASSIUM CL. PREMIX PERIPHER. 50 ML IV SCH ×3 (07:10→08:33)
--- NOTE | 2022-07-16 07:30 | NUR ---
ICU/RN PT IS RESTING.ON ROOM AIR,SAT O2-98%.V/S STABLE,AFEBRILE.NO PAIN REPORTED AT THIS TIME.PT IS AWAKE,ALERT,COOPERATIVE.SKIN INTACT.WAITING FOR PSYCHIATRIST EVALUATION.SUICIDAL IDEATION.WITH 1:1 SITTER.LABS REVIEW K-2.7. NOTIFIED.ORDERS RECEIVED .CONTINUE MONITORING.
[2022-07-16] MEDS: PANTOPRAZOLE 40 MG TABLET.DR PO SCH (07:46)
--- NOTE | 2022-07-16 08:47 | NUR ---
ICU/RN PT EATS 100%.FROM HER MEAL TRAY.2O MEQ IV KCL GIVEN ORDERED.PT FEELS PAIN ON IV LINE AND REFUSED TO TAKE MORE POTASSIUM IV. NOTIFIED.80 MEQ OF POTASSIUM ORDERED.
[2022-07-16] MEDS ORDERED: POTASSIUM CHLORIDE 20 MEQ TAB.PRT.SR PO ONE (09:00)
[2022-07-16 11:21] LABS: ALBUMIN 2.6 g/dL (3.4-5.0); BILIRUBIN,TOTAL 0.5 mg/dL (0.2-1.0); CALCIUM, SERUM 8.2 mg/dL (8.5-10.1); CREATININE 0.5 mg/dL (0.6-1.3); PHOSPHORUS 2.4 mg/dL (2.5-4.9); POTASSIUM 3.2 mmol/L (3.5-5.1); TOTAL PROTEIN, SERUM 5.4 g/dL (6.4-8.2)
[2022-07-16] MEDS: risperiDONE 1 MG TABLET PO SCH ×2 (14:33→16:12)
--- NOTE | 2022-07-16 14:35 | NUR ---
Seniour Insight Manager Consult SW received a consult request for suicidal ideation. Patient overdosed on Tylenol prior to admission to ICU. Pt. is a 19 y.o. female who was admitted for suicidal ideation and attempt. SW met with pt. at bedside. The pt. was alert and oriented x4. The pt. appeared unkempt, did not make eye contact, and was cooperative throughout the assessment. Pt. had a depressed mood and congruent affect. Pt. reported she did not have a place to stay. Pt. confirmed the contact information for her father. Pt. stated she was ambulatory. Per pt. report she has Major Depressive Disorder, and Bipolar Disorder. Pt. reported no visual or auditory hallucinations. SW assessed for suicidal and homicidal ideation in which pt. reported suicidal ideation with a plan to run into the street and or OD. Pt. did not report homicidal ideation. DC plan: When asked of pt.s plan after discharge, pt. stated she did not have a place to go. MELY offered pt. information on half-way options in which pt. was agreeable. MELY offered to refer pt. for voluntary placement at [facility] ([facility]) in which pt. was agreeable. MELY provided pt. with homelessness resources and mental health resources in which pt. accepted them. MELY provided pt. with information to [facility] ([address] [place] [address]) with a TAP card. MELY informed nurse that pt. agreed to voluntary placement. SW will refer pt. to voluntary once pt. is medically clear. SW will await outcome of psychiatry consult. Patient was seen by Dr Chen earlier. Counseling--Outpatient [facility] [address] [place] [address] (Specializes in in-depth psychotherapy for emotional distress: anxiety, depression, interpersonal conflicts, life transitions, childhood abuse) [facility] [address] [place] [address] (Assist with solving problem marital difficulties, separation & divorce, aging parents, & grief, chronic & terminal illness) [facility] [address] [place] [address] (Deal with loss & grief, anxiety, marital difficulties) Homebound/Mental Health Services [address] [facility], [address] [place] [address] (Provide in-home mental services to people who are incapable of leaving their homes) [facility] of the Elderly Senior [facility] [address] [facility] [place] [address] [facility] [address] [place], [place] [id number] Mental Health Services Miranda Genaro Barre [address] [place] [address] Services: Outpatient therapy for children, teens, young adults, adults, older adults, and families; Psychiatric services, medication support Psychiatric Outpatient Services [facility] Partial Hospitalization and Intensive Outpatient Program (Managed Care and [place] Only) [address] [facility] [id number] [facility] Partial Hospitalization and Outpatient Program [address] [facility] [address] [place], [place] [phone] [facility] Mental Health [employer] [address] [facility] [address] [place], [place] [address] [facility] Partial Hospitalization and Outpatient Program [address] [place], [place] [phone] Crisis and Hotline Telephone Numbers 24-Hour service unless stated [facility] Crisis Hotlines: [facility] Mental Health/Crisis Line........305.484.6237 Suicide Prevention Center (24 Hours).......636.144.2312 Suicide Prevention Crisis Center.......[phone] (24 Hours) Assaults Against Women Hotline.........833.410.3792 (24 Hours -- [facility]) Women and Children Crisis Usp...........[phone] (24 Hours) Child Abuse Hotline............547.958.9336 ([facility] Treatment [facility] (24 Hours)..........503.616.9779 Alcoholics Anonymous (24 Hours)..........784.336.7910 Cocaine Anonymous (24 Hours)............[phone] Narcotics Anonymous (24 Hours)..........[phone] Yamile Jones [facility] [address] [place] [address] Year-round shelters: [facility] [place] [address] [place], [place] [address] ; [place] [facility] [place] [address] [place] [address]; [facility] [address] [facility] [address] Hygiene: [facility]: [address] [facility] ; [facility] [address] [facility] ; [facility] [address] [facility] [place] . Food Resources: [place] [facility] at [facility]- [address] [facility]; Meet Each Need with Dignity ([facility]) [address] [facility]; [facility] [address] [facility] [facility]; [facility] 85[address] [facility]. Mental Health resources provided: [facility] [address] [place] [address] ; [facility] Mental Health [employer] [address] [facility] [address], [place] [address] ; Yamile Jones [facility] [address] [place] [address] ; [facility] [address] [place], [place] [address] Healthcare Clinics: [facility] [address] [place] [address] [place], [address] [place]. [place] ; [facility] [address] [facility] [address] [place] [address]; [facility] [address] [facility] [place] [address] [phone]
--- NOTE | 2022-07-16 16:04 | NUR ---
ICU/RN PT IS STABLE TO TRANSFER TO MED SURGE UNIT WITH SITTER.V/S STABLE AFEBRILE.DUE MEDS ARE GIVEN ORDERED NO PAIN REPORTED AT THIS TIME.WAITING FOR MCRISIS TEAM EVALUATION AND FOR THE BED.
[2022-07-16] MEDS ORDERED: NEUTRA PHOS 1 POWD.PACKET PO ONE (18:00)
--- NOTE | 2022-07-16 19:20 | NUR ---
ICU/RN PT TRANSFERRED TO [facility] UNIT .V/S STABLE,AFEBRILE.NO PAIN REPORTED AT THIS TIME.
--- NOTE | 2022-07-16 19:46 | NUR ---
ICU/RN PT TRANSFERRED TO [facility] UNIT.JAIRO Munson /SANDRITA AT BEDSIDE.PT HAS NO BELONGING AT BED SIDE IN ICU .PT STATES SHE HAD SOME CLOSE DURING ADMISSION IN ER. PRIMARY NURSE NOTIFIED.,CHARGE NURSE NOTIFIED.WILL FOLLOW UP.
--- NOTE | 2022-07-16 20:00 | NUR ---
LINK WIRE FABRIC MACHINE TENDER NOTES: RECEIVED PATIENT FROM ICU VIA WHEELCHAIR, NO COMPLAIN OF PAIN AND DISCOMFORT AT THIS TIME, ON ROOM AIR SATURATING WELL, PATIENT ON TELE [id number], NO SYMPTMS WAS OBSERVED, ORIENTED TO ROOM REMIND TO USE THE CALL LIGHTS WHEN NEEDED WITH 1:1 SITTER AT BEDSIDE, PATIENT WAS ASKING HER PERSONAL BELONGINGS WAS AWARE THAT NO BELONGINGS WAS ENDORSE FROM ICU, NO PERSONAL BELONGINGS ON PATIENT NOTES, PER PATIENT SHE HAS 4 JACKETS, 1 PAJAMA, A PAIR OF SHOES AND PINK PURSE, MADE A FOLLOW UP ON ER AND STATED THAT THEY LOOK FOR THAT, PATIENT WAS OFFERED FOOD, NO CHANGES IN BEHAVIOR WAS OBSERVED, WILL CONTINUE TO MONITOR.
[2022-07-17 00:30] VITALS: BP 123/74
[2022-07-17 04:00] VITALS: BP 123/74
--- NOTE | 2022-07-17 05:15 | NUR ---
RN NOTES: PATIENT REFUSED BLOOD PRESSURE CHECK AT 12MN AND 4AM, OFFERED SEVERAL TIMES BUT REFUSED
--- NOTE | 2022-07-17 06:38 | NUR ---
MELTER SUPERVISOR CLOSING NOTES: PATIENT SLEEP IN BED COMFORTABLY, BED IN LOW POSITION CALL LIGHTS WITHIN REACH, NO COMPLAIN OF PAIN AND DISCOMFORT AT THIS TIME, ON ROOM AIR SATURATING WELL, PATIENT ON TELE [id number], A/O X2-3 AMBULATORY , ABLE TO MAKE NEEDS KNOWN, WITH 1:1 SITTER, , NO AGGRESSIVE BEHAVIOR WAS OBSERVED, PATIENT KEPT CLEAN AND DRY ALL NEEDS MET ENDORSE TO INCOMING SHIFT.
[2022-07-17 07:25] LABS: ALBUMIN 2.6 g/dL (3.4-5.0); BILIRUBIN,TOTAL 0.2 mg/dL (0.2-1.0); CALCIUM, SERUM 8.4 mg/dL (8.5-10.1); CREATININE 0.5 mg/dL (0.6-1.3); PHOSPHORUS 4.2 mg/dL (2.5-4.9); POTASSIUM 3.8 mmol/L (3.5-5.1); TOTAL PROTEIN, SERUM 5.5 g/dL (6.4-8.2)
--- NOTE | 2022-07-17 07:30 | NUR ---
SKIVING MACHINE OPERATOR AM NOTES: PATIENT IN BED, AWAKE, ALERT, ORIENTED X 3, ON ROOM AIR, NO DISTRESS,REFUSED VITAL SIGNS IN AM, "I DONT FEEL LIKE IT", DENIES PAIN AT THIS TIME. DENIES SUICIDAL THOUGHT. SR HR 80 ON MONITOR. LEFT AC G20 AND RT HAND G20 IV ACCESS, BOTH FLUSHES WELL, BOTH SITES CLEAR. AMBULATES, ON REGULAR DIET. POC DISCUSSED, VERBALIZED UNDERSTANDING.SITTER 1:1. SAFETY MEASURES IN PLACE. CALL LIGHT WITHIN REACH WILL CONT TO MONITOR.
[2022-07-17] MEDS: PANTOPRAZOLE 40 MG TABLET.DR PO SCH (08:09)
[2022-07-17] MEDS: risperiDONE 1 MG TABLET PO SCH ×2 (08:09→16:05)
--- NOTE | 2022-07-17 09:30 | NUR ---
RN NOTES DUE MEDS GIVEN
[2022-07-17 13:00] VITALS: BP 111/54
[2022-07-17 16:00] VITALS: BP 111/54
--- NOTE | 2022-07-17 18:44 | NUR ---
FACS TEACHER CLOSING NOTES: PATIENT IN BED, AWAKE, ALERT, ORIENTED X 3, ON ROOM AIR, NO DISTRESS,DENIES PAIN AT THIS TIME. DENIES SUICIDAL THOUGHT. SR HR 80s ON MONITOR. LEFT AC G20 AND RT HAND G20 IV ACCESS, BOTH FLUSHES WELL, BOTH SITES CLEAR. AMBULATES, ON REGULAR DIET. SITTER 1:1. AT BEDSIDE. SAFETY MEASURES IN PLACE. CALL LIGHT WITHIN REACH ALL NEEDS MET. NO OTHER SIGNIFICANT CHANGE IN CONDITION. WILL ENDORSE TO NEXT SHIFT FOR EMIR.
--- NOTE | 2022-07-17 19:10 | NUR ---
RN NOTES; RECEIVED ASLEEP ON BED, WITH 1;2 SITTER AT BEDSIDE, MONITORED FOR SUICIDAL IDEATION, A/O 2-3, WITH BRP, SKIN IS INTACT LAC G#20 AND RH G#20 PATENT, FOR AM LABS, KEPT ON CLOSE WATCH.FALL AND SAFETY PRECAUTION OBSERVED.
[2022-07-17 20:00] VITALS: BP 112/71
--- NOTE | 2022-07-18 02:32 | NUR ---
RN NOTES: AWAKE, REQUEST FOR SNACKS, VERIFY DIET FIRST, SHE IS FULLY AWAKE, INSTRUCT SITTER TO KEEP ON ASPIRATION PRECAUTION WHILE SHE EAT.
--- NOTE | 2022-07-18 06:02 | NUR ---
RN NOTES: LOPEZ-MAGALY RIVERA REPORTED TO RN THAT PATIENT STRONGLY REFUSED FOR BLOOD TEST, SHE TURNED AROUND, STAFF TRIED TO EXPLAIN TO HER THE RISK AND BENIFITS BUT SHE DONT WANT TO LISTEN, MIGUEL SAID THEY WILL RETURNED BACK AGAIN AFTER AN HOUR.
--- NOTE | 2022-07-18 06:52 | NUR ---
RN NOTES: ASLEEP, NON LABORED BREATHING,NO PAIN OR DISCOMFORT, NO SUICIDAL THOUGHT, NO PHYSICAL SIGN OF HARMING HER SELF, ON CLOSE WATCH WITH 1;2 SITTER, NEEDS ATTENDED, DRINKING FLUIDS WELL,ENDORSED FOR CONTINUITY OF CARE.
--- NOTE | 2022-07-18 07:00 | NUR ---
MS RN OPENING NOTES PATIENT LAYING IN BED, A/OX 3, ABLE TO MAKE NEEDS KNOWN, TOLERATING WELL ON ROOM AIR WITH NO S/S RESPIRATORY DISTRESS. NO COMPLAINTS OF PAIN OR DISCOMFORT AT THIS TIME. L AC # 20 G AND R HAND # 20 G SL CLEAN, INTACT, AND FLUSHING WELL. 1:1 SITTER AT BEDSIDE. SAFETY MEASURES IN PLACE: BED IN LOWEST LOCKED POSITION, SIDE RAILS UP X 2, CALL LIGHT WITHIN REACH. WILL CONTINUE TO MONITOR.
[2022-07-18 08:00] VITALS: BP_SYST 112; BP_SYST 120; BP_DIAS 52; BP_DIAS 78
[2022-07-18 08:06] LABS: ALBUMIN 2.8 g/dL (3.4-5.0); BILIRUBIN,TOTAL 0.3 mg/dL (0.2-1.0); CALCIUM, SERUM 8.5 mg/dL (8.5-10.1); CREATININE 0.6 mg/dL (0.6-1.3); PHOSPHORUS 4.8 mg/dL (2.5-4.9); POTASSIUM 3.9 mmol/L (3.5-5.1); TOTAL PROTEIN, SERUM 6.2 g/dL (6.4-8.2)
[2022-07-18 08:23] LABS: BASOPHILS % (AUTO) 0.1 % (0.0-2.0); EOSINOPHILS % (AUTO) 1.6 % (0.0-6.0); HEMATOCRIT 36 % (33-45); HEMOGLOBIN 11.3 g/dL (11.5-14.8); LYMPHOCYTES # (AUTO) 2.4 K/uL (0.8-4.8); MEAN CORPUSCULAR HGB CONC 32 g/dl (31.0-36.0); MEAN CORPUSCULAR VOLUME 81 fL (82-100); MONOCYTES # (AUTO) 1.3 K/uL (0.1-1.30); MONOCYTES % (AUTO) 12.7 % (2.0-12.0); NEUTROPHILS # (AUTO) 6.1 K/uL (1.8-8.9); NEUTROPHILS % (AUTO) 61.6 % (43.0-81.0); PLATELET COUNT (AUTO) 191 K/uL (150-450); RED BLOOD CELL COUNT(AUTO) 4.39 MIL/uL (4.0-5.2); WHITE BLOOD COUNT (AUTO) 9.9 K/uL (4.3-11.0)
[2022-07-18] MEDS: PANTOPRAZOLE 40 MG TABLET.DR PO SCH (08:55)
[2022-07-18] MEDS: risperiDONE 1 MG TABLET PO SCH ×2 (08:55→16:38)
[2022-07-18] MEDS: MENTHOL/CETYLPYRD (CEPACOL) 1 LOZ LOZENGE PO PRN (15:25)
[2022-07-18 16:00] VITALS: BP 126/72
[2022-07-18 18:33] VITALS: BP 101/62
[2022-07-18 20:00] VITALS: BP 121/67
--- NOTE | 2022-07-18 20:00 | NUR ---
MS RN OPENING NOTES RECEIVED PATIENT SLEEP IN BED COMFORTABLY, AROUSABLE TO VERBAL STIMULI, BED IN LOW POSTION CALL LIGHT WITHIN REACH, NO COMPLAIN OF PAIN AND DISCOMFORT AT THIS TIME ON ROOM AIR SATURATING WEKK, PATIENT HAS 1:1 SITTER DUE TO SUICIDAL HX, NO CHANGES ON BEHAVIOR HAS BEEN OBSERVED, PATIENT KEPT CLEAN AND DRY ALL NEEDS MET WILL CONTINUE TO MONITOR.
--- NOTE | 2022-07-19 06:33 | NUR ---
MS RN CLOSING NOTES: PATIENT SLEEP IN BED COMFORTABLY, AROUSABLE TO VERBAL STIMULI, BED IN LOW POSITION, CALL LIGHTS WITHIN REACH, NO COMPLAIN OF PAIN AND DISCOMFORT AT THIS TIME, ON ROOM AIR SATURATING WELL, PATIENT IS A/OX4 ABLE TO MAKE NEEDS KNOWN, WITH 1: 1 SITTER DUE TO SUICIDAL HX, PATIENT KEPT CLEAN AND DRY ALL NEEDS MET ENDORSE TO INCOMING SHIFT,
[2022-07-19] MEDS: PANTOPRAZOLE 40 MG TABLET.DR PO SCH (07:30)
--- NOTE | 2022-07-19 07:35 | NUR ---
RN OPENING NOTE- PATIENT ASLEEP IN BED, EASILY A WAKENED, AOX4, BED IN LOW POSITION, CALL LIGHT WITHIN REACH, DENIES PAIN AND DISCOMFORT AT THIS TIME, ON ROOM AIR SATURATING WELL, PATIENT IS A/OX4 ABLE TO MAKE NEEDS KNOWN, WITH 1: 1 SITTER DUE TO SUICIDAL HX, PATIENT KEPT CLEAN AND DRY, DENIES +SI AT PRESENT, MONITOR FOR SAFETY/ ASSIST
[2022-07-19 08:00] VITALS: BP 95/42
[2022-07-19] MEDS: risperiDONE 1 MG TABLET PO SCH ×2 (09:00→16:34)
--- NOTE | 2022-07-19 09:24 | NUR ---
RN NOTE PATIENT OPPOSITIONAL TO CARE. REFUSING MORNING MEDS. VITALS STABLE- BP- 95/42 HR- 86, T- 98.0, R- 20, SAT- 98% RA. EXPLAINED BENEFITS OF RX, PATIENT CONTINUES TO REFUSE.
[2022-07-19] MEDS: MENTHOL/CETYLPYRD (CEPACOL) 1 LOZ LOZENGE PO PRN ×2 (10:45→14:24)
[2022-07-19 10:54] LABS: HEMOGLOBIN 10.9 g/dL (11.5-14.8); MONOCYTES # (AUTO) 1.1 K/uL (0.1-1.30)
[2022-07-19 10:59] LABS: BASOPHILS % (AUTO) 0.3 % (0.0-2.0); EOSINOPHILS % (AUTO) 1.8 % (0.0-6.0); HEMATOCRIT 35 % (33-45); LYMPHOCYTES # (AUTO) 1.5 K/uL (0.8-4.8); LYMPHOCYTES % (AUTO) 12.9 % (20.0-44.0); MEAN CORPUSCULAR HGB CONC 32 g/dl (31.0-36.0); MEAN CORPUSCULAR VOLUME 80 fL (82-100); MONOCYTES % (AUTO) 9.6 % (2.0-12.0); NEUTROPHILS # (AUTO) 8.6 K/uL (1.8-8.9); NEUTROPHILS % (AUTO) 75.4 % (43.0-81.0); PLATELET COUNT (AUTO) 212 K/uL (150-450); RED BLOOD CELL COUNT(AUTO) 4.32 MIL/uL (4.0-5.2); WHITE BLOOD COUNT (AUTO) 11.4 K/uL (4.3-11.0)
[2022-07-19 11:12] LABS: ALBUMIN 2.9 g/dL (3.4-5.0); BILIRUBIN,TOTAL 0.2 mg/dL (0.2-1.0); CALCIUM, SERUM 8.8 mg/dL (8.5-10.1); CREATININE 0.6 mg/dL (0.6-1.3); MAGNESIUM 2.1 mg/dL (1.8-2.4); PHOSPHORUS 3.5 mg/dL (2.5-4.9); TOTAL PROTEIN, SERUM 6.5 g/dL (6.4-8.2)
[2022-07-19 11:58] LABS: LYMPHOCYTES % (MANUAL) 12 % (16-48); MONOCYTES % (MANUAL) 12 % (0-11.0); NEUTROPHILS % (MANUAL) 76 (42-76)
[2022-07-19 13:35] LABS: ALBUMIN 2.9 g/dL (3.4-5.0); BILIRUBIN,DIRECT 0.1 mg/dL (0.0-0.2); BILIRUBIN,TOTAL 0.2 mg/dL (0.2-1.0); TOTAL PROTEIN, SERUM 6.5 g/dL (6.4-8.2)
--- NOTE | 2022-07-19 14:00 | NUR ---
MELY spoke to nurse Valdes who stated that pt. was medically cleared. MELY faxed clinicals to [facility] TEL:[phone] fax:[phone] for voluntary psychiatric treatment at [facility] [[address] [place] [id number] FAX:[phone]].
[2022-07-19 16:00] VITALS: BP 110/67
--- NOTE | 2022-07-19 16:48 | NUR ---
MELY followed up with [facility] TEL:[phone] regarding possible admission. Per Rochelle, they are still waiting for feedback from nursing sup. MELY relayed this to [facility] nursing sup., Shell and Tracy CABRAL. MELY provided Rochelle from [facility] with [facility]3 number to call with acceptance info.
--- NOTE | 2022-07-19 17:00 | NUR ---
MELY faxed the medical clearance note to [facility] FAX: [phone]
--- NOTE | 2022-07-19 18:27 | NUR ---
RN CLOSING NOTE RESIDENT SITTING IN BED, ALERT AND ORIENTED X4, WITH SITTER AT BEDSIDE. ABLE TO MAKE NEEDS KNOWN. AFEBRILE AND NOT ON ANY FORM OF ACUTE DISTRESS. NO SOB/WHEEZING NOTED. PATIENT NOTED TALKING TO HERSELF AT TIMES BUT NO SUICIDAL IDEATION OBSERVED AT THIS TIME. REFUSED SOME OF HER MEDS DESPITE EXPLAINING RISK AND CONSEQUENCES OF NOT TAKING IT. REMOVED HER HEPLOCK. [facility] ACCEPTED PT FOR TOMORROW MORNING UNDER CARE OF DR BEJARANO. NUMBER FOR REPORT [phone]. OFFERED AND ENCOURAGED FLUIDS TOLERATED. SAFETY MEASURES IN PLACE. KEPT BED IN LOCKED AND IN LOW POSITION. ADVISED TO USE THE CALL LIGHT WHEN IN NEED OF ASSISTANCE. CONSTANT VISUAL CHECK DONE TO ENSURE SAFETY. ALL NURSING NEEDS ATTENDED.
--- NOTE | 2022-07-19 19:39 | NUR ---
MS RN OPENING NOTE: RECEIVED PATIENT AWAKE IN BED BED IN LOW POSITION, CALL LIGHTS WITHIN REACH, NO COMPLAIN OF PAIN AND DISCOMFORT AT THIS TIME, ON ROOM AIR SATURATING WELL, NO IV LINE UPON ENDORSEMENT PATIENT REFUSED, OFFERED TO REINSERT IV LINE BUT PATIENT STILL REFUSED, PATIENT HAS 1:1 SITTER DUE NO CHANGES IN BEHAVIOR WAS OBSERVED PATIENT KEPT CLEAN AND DRY ALL NEEDS MET WILL CONTINUE TO MONITOR.
[2022-07-19 20:00] VITALS: BP 112/60
[2022-07-19 21:00] VITALS: BP 112/60
--- NOTE | 2022-07-20 01:00 | NUR ---
PATIENT DISCHARGED IN STABLE CONDITION, A/O X4. ABLE TO MAKE NEEDS KNOWN. PATIENT ON ROOM AIR, TOLERATING WELL. NO SOB NOTED, NOT IN ANY SIGNS OF DISTRESS. VITAL SIGNS TAKEN, STABLE AND RECORDED. PATIENT HAD A LEFT LOWER LEG WOUND, DRY AND INTACT-PICTURE TAKEN. NO IV LINE AT TIME OF DISCHARGE. DENIES PAIN OR DISCOMFORT AT THIS TIME. PATIENT HAD NO BELONGINGS. PATIENT WAS GIVEN EXTRA CLOTHES TOPS AND BOTTOMS. DISCHARGED INSTRUCTIONS RELAYED TO [facility] AT 1140. PATIENT WAS PICKED UP BY 2 HAND CIGAR MAKER AND LEFT THE UNIT AT 1212. MD AND CHARGE NURSE AWARE OF DISCHARGE.
--- NOTE | 2022-07-20 06:19 | NUR ---
RN NOTES: PATIENT REFUSED BLOOD WORKS OFFERED 3X EXPLAIN THE IMPORTANCE BUT STILL REFUSED,
--- NOTE | 2022-07-20 06:20 | NUR ---
MS RN CLOSING NOTES: PATIENT SLEEP IN BED COMFORTABLY, BED IN LOW POSITION VERONA LIGHTS WITHIN REACH, NO COMPLAIN OF PAIN AND DISCOMFORT AT THIS TIME, ON ROOM AIR SATURATING WELL, PATIENT IS A/OX4 AMBULATORY ABLE TO MAKE NEEDS KNOWN, REFUSED BLOOD WORKS FOR LAB PURPOSE, WITH 1:1 SITTER NO CHANGES IN BEHAVIOR WAS OBSERVED, KEPT CLEAN AND DRY ALL NEEDS MET ENDORSE TO INCOMING SHIFT.
--- NOTE | 2022-07-20 07:10 | NUR ---
MS RN OPENING NOTES RECEIVED PATIENT SLEEP IN BED COMFORTABLY, AROUSABLE TO VERBAL STIMULI, BED IN LOW POSTION CALL LIGHT WITHIN REACH, NO COMPLAIN OF PAIN AND DISCOMFORT AT THIS TIME ON ROOM AIR SATURATING WELL, PATIENT HAS 1:1 SITTER DUE TO SUICIDAL HX, NO CHANGES ON BEHAVIOR HAS BEEN OBSERVED, KEPT COMFORTABLE. WILL MONITOR.
[2022-07-20] MEDS: PANTOPRAZOLE 40 MG TABLET.DR PO SCH (08:27)
[2022-07-20] MEDS: risperiDONE 1 MG TABLET PO SCH (08:31)
--- NOTE | 2022-07-20 08:50 | NUR ---
WOUND CARE CONSULT: PT REFUSED WOUND CONSULT. PT IS INDEPENDENT WITH BED MOBILITY AND IS NONVERBAL AT THIS TIME. WILL SEE PT PT CONDITION PERMITS.
--- NOTE | 2022-07-20 08:59 | NUR ---
MELY followed up with [facility] TEL:[phone] regarding possible psych admission. Per Rochelle, they are still waiting for bed availability. MELY will follow up later.
[2022-07-20] MEDS ORDERED: ACET325T53 PO (10:00)
[2022-07-20] MEDS ORDERED: Menthol/Cetylpyrd (Cepacol) PO (10:00)
[2022-07-20] MEDS ORDERED: PANT40TA49 PO (10:00)
[2022-07-20] MEDS ORDERED: RISP1TAB7 PO (10:00)
== END 2022-07-20 12:32 | DRG 817 ==
LOC: ER 21:19 → ICU 07-15 16:15 → TELE 07-16 19:53 → MED 07-16 19:54 → TELE 07-16 20:37
PROVIDERS: ADMIT Student in an Organized Health Care Education/Training Program; ATTEND Nurse Practitioner Acute Care
DX: T39.1X2A Poisoning by 4-Aminophenol derivatives, intentional self-harm, initial encounter (principal); K72.00 Acute and subacute hepatic failure without coma; E44.0 Moderate protein-calorie malnutrition; E83.39 Other disorders of phosphorus metabolism; D64.9 Anemia, unspecified; E87.6 Hypokalemia; Z59.00 Homelessness unspecified; Z20.822 Contact with and (suspected) exposure to COVID-19; F32.9 Major depressive disorder, single episode, unspecified; R74.01 Elevation of levels of liver transaminase levels; Z68.21 Body mass index [BMI] 21.0-21.9, adult; F25.1 Schizoaffective disorder, depressive type; R45.851 Suicidal ideations; Z91.51 Personal history of suicidal behavior; Y92.89 Other specified places as the place of occurrence of the external cause
CPT/HCPCS: 36415; 76700-TC; 80048-TC; 80053-TC; 80076-TC; 81001; 82550-TC; 83735-TC; 84100-TC; 84703-TC; 85025-TC; 85610-TC; 85730-TC; A6403; C9803; G0378; G0480; J0132; J2405; J3475; J3480; J3490; J7030; J7050; J7060; J7070

== ENCOUNTER 2022-11-06 14:25 | Emergency (ER) | payer MEDICAID, OTHER ==
[~2022-11-06] VITALS: Ht 180.3 cm; Wt 60.8 kg
[~2022-11-06 14:25] MED LIST changes: +ACET325T53 PO; -CEPH500C2 PO; -MUPI22OI2 TP; +Menthol/Cetylpyrd (Cepacol) PO; +PANT40TA49 PO; +RISP1TAB7 PO; -SULF1TAB48 PO
--- NOTE | 2022-11-06 14:40 | NUR ---
BIBS W/ C/O VAGINAL DISCHARGE AND PAINFUL URINATION; STATES "STD X3DAYS". TO ER 19.
[2022-11-06] MEDS ORDERED: CEFTRIAXONE 1 G VIAL IM ONE (15:00)
[2022-11-06] MEDS ORDERED: LIDOCAINE 1% INJ 50 ML MDV IJ ONE (15:02)
[2022-11-06] MEDS ORDERED: CEFTRIAXONE 500 MG VIAL ONE (15:02)
--- NOTE | 2022-11-06 15:15 | NUR ---
URINE SAMPLE COLLECTED AND SENT TO LAB
--- NOTE | 2022-11-06 15:17 | NUR ---
ROCEPHIN GIVEN RIGHT DELTOID IM INDICATED DEBORA WELL.
[2022-11-06 15:34] LABS: BILIRUBIN,URINE NEGATIVE (NEGATIVE); COLOR,URINE YELLOW (YELLOW); LEUKOCYTE ESTERASE ,URINE NEGATIVE (NEGATIVE); NITRITE, URINE POSITIVE (NEGATIVE); PROTEIN,URINE NEGATIVE (NEGATIVE); UGLUCOSE NEGATIVE (NEGATIVE); UROBILINOGEN,URINE 0.2 EU/dL (0.2)
[2022-11-06 15:46] LABS: BACTERIA,URINE Few /HPF (None Seen); SQUAMOUS EPITHELIAL CELL,UR Moderate /HPF (None Seen); WBC,URINE NONE SEEN /HPF (0-3)
[2022-11-06] MEDS ORDERED: AZIT1PAC PO (15:52)
--- NOTE | 2022-11-06 15:59 | NUR ---
Patient discharged to home in stable condition. Written and verbal after care instructions given. Patient verbalizes understanding of instruction.
[2022-11-06 16:00] VITALS: BP 105/64
== END 2022-11-06 16:00 | disposition home or self-care (01) ==
LOC: ER 14:51
DX: A64 Unspecified sexually transmitted disease (principal); Z79.899 Other long term (current) drug therapy
CPT/HCPCS: 99283; 96372; 87086; 84703; 81001; 87491; 87591; J3490; J0696